=== PATIENT | male | born 1970 | race Caucasian/White ===

== ENCOUNTER 2017-03-10 20:20 | Emergency (ER) | payer OTHER, SELFPAY ==
[2017-03-10] MEDS ORDERED: Nitroglycerin 0.4 MG TAB (25 Tab Bottle) ONE (20:45)
--- NOTE | 2017-03-10 20:48 | RAD ---
TWO VIEWS OF THE CHEST 03/10/17 COMPARISON: 02/14/16 HISTORY: Chest pain. FINDINGS: Two views of the chest show normal sized cardiomediastinal silhouette. There is no evidence of consol idation, mass, or pleural effusion. The bones are unremarkable. IMPRESSION: No evidence of acute cardiopulmonary disease. POS: [facility]
[2017-03-10 21:08] LABS: #Basophils 0.2 thou/uL (0.0-0.2); #Eosinphils 0.5 thou/uL (0.0-0.7); #Lymphocytes 3.3 thou/uL (1.20-3.40); #Monocytes 0.7 thou/uL (0.11-0.59); #Neutrophils 4.7 thou/uL (1.40-6.50); %Eosinophils 5.2 % (0.0-10.0); %Lymphocytes 35.3 % (21.0-51.0); %Monocytes 7.9 % (0.0-10.0); %Neutrophils 49.6 % (42.0-75.0); Mean Corpuscular HGB CONC 33.5 g/dL (32.0-36.0); Mean Corpuscular Hemoglobin 29.5 pg (27.0-31.0); Mean Corpuscular Volume 88.1 fl (80.0-94.0); Mean Platelet Volume 8.4 fL (7.4-10.4); Platelet Count 248 thou/uL (130-400); RBC Distribution Width 11.1 % (11.5-14.5); Red Blood Cell (RBC) Count 5.74 mill/uL (4.70-6.10); White Blood Cell (WBC) Count 9.5 thou/uL (4.8-10.8)
[2017-03-10 21:16] LABS: INR-International Normal Ratio 0.9; Prothrombin Time 12.5 SEC (12.0-14.7)
[2017-03-10 21:23] LABS: ALT (SGPT) 46 U/L (8-55); AST (SGOT) 30 U/L (5-34); Alkaline Phosphatase 100 U/L (40-150); Anion Gap 14 mmol/L (10-20); BUN (Urea Nitrogen) 10 mg/dL (8.9-20.6); Bilirubin, Total 0.5 mg/dL (0.2-1.2); CK (CPK) 375 U/L (30-200); Calc. Creatinine Clearance 0 mL/min (70-130); Calcium 9.4 mg/dL (7.8-10.44); Carbon Dioxide 22 mmol/L (22-29); Chloride 107 mmol/L (98-107); Estimated GFR-MDRD 74; Globulin 3.2 g/dL (2.4-3.5); Glucose 126 mg/dL (70-105); Lipase 28 U/L (8-78); Potassium 3.7 mmol/L (3.5-5.1); Protein, Total 7.2 g/dL (6.0-8.3); Sodium 139 mmol/L (136-145)
[2017-03-10 21:30] LABS: CKMB 4.1 ng/mL (0-6.6)
== END 2017-03-10 22:55 | disposition home or self-care (01) ==
LOC: SCSER 20:20
DX: R07.9 Chest pain, unspecified (principal); E78.5 Hyperlipidemia, unspecified; F17.210 Nicotine dependence, cigarettes, uncomplicated
CPT/HCPCS: 71046; 80053; 82550; 82553; 83690; 84484; 85025; 85610; 93005; 94760

== ENCOUNTER 2018-11-13 11:40 | Emergency (ER) | payer OTHER, SELFPAY ==
--- NOTE | 2018-11-13 12:18 | RAD ---
PA AND LATERAL CHEST: Date: 11/13/18 COMPARISON: 03/10/17. HISTORY: Cough. FINDINGS: Heart size upper limits of normal. Interstitial markings are increased, but similar to the prior exam and appear to be chronic. No confluent infiltrate. IMPRESSION: Chronic appearing lung change. POS: [facility]
== END 2018-11-13 12:41 | disposition home or self-care (01) ==
LOC: SCSER 11:40
DX: R05 Cough (principal); E78.5 Hyperlipidemia, unspecified; E78.00 Pure hypercholesterolemia, unspecified; F17.210 Nicotine dependence, cigarettes, uncomplicated; F17.220 Nicotine dependence, chewing tobacco, uncomplicated
CPT/HCPCS: 71046; 87804

== ENCOUNTER 2019-07-19 16:56 | Emergency (ER) | payer SELFPAY ==
[2019-07-19 17:28] LABS: #Basophils 0.1 thou/uL (0.0-0.2); #Eosinphils 0.3 thou/uL (0.0-0.7); #Lymphocytes 3.2 thou/uL (1.20-3.40); #Monocytes 0.8 thou/uL (0.11-0.59); #Neutrophils 8.6 thou/uL (1.40-6.50); %Basophils 0.9 % (0.0-1.0); %Eosinophils 2.2 % (0.0-10.0); %Lymphocytes 24.8 % (21.0-51.0); %Monocytes 6.3 % (0.0-10.0); %Neutrophils 65.8 % (42.0-75.0); Hemoglobin 17.8 g/dL (14.0-18.0); Mean Corpuscular HGB CONC 33.6 g/dL (32.0-36.0); Mean Corpuscular Hemoglobin 31.4 pg (27.0-31.0); Mean Corpuscular Volume 93.5 fL (78.0-98.0); Platelet Count 270 thou/uL (130-400); Red Blood Cell (RBC) Count 5.66 mill/uL (4.70-6.10)
--- NOTE | 2019-07-19 17:47 | CT ---
CT THORAX WITH CONTRAST: DATE: 07/19/2019 HISTORY: 48-year-old male status post acute blunt trauma to the chest FINDINGS: No grossly displaced fractures of ribs, sternum, or thoracic spine. Thoracic vertebral body heights a re maintained. Lungs are clear. No pleural effusion or pneumothorax. No thoracic aortic dissection, aneurysm, or rupture. No pericardial effusion. No mediastinal hematoma or lymphadenopathy. Trachea an d major bronchi are patent and clear. No large hematoma in the chest wall. IMPRESSION: Negative
[2019-07-19 17:49] LABS: ALT (SGPT) 37 U/L (8-55); AST (SGOT) 34 U/L (5-34); Albumin 4.3 g/dL (3.5-5.0); Alkaline Phosphatase 109 U/L (40-110); Anion Gap 15 mmol/L (10-20); BUN (Urea Nitrogen) 10 mg/dL (8.9-20.6); Bilirubin, Total 0.5 mg/dL (0.2-1.2); Calc. Creatinine Clearance 0 mL/min (70-130); Calcium 9.6 mg/dL (7.8-10.44); Carbon Dioxide 20 mmol/L (22-29); Chloride 106 mmol/L (98-107); Estimated GFR-MDRD 71; Globulin 3.5 g/dL (2.4-3.5); Glucose 74 mg/dL (70-105); Lipase 21 U/L (8-78); Potassium 4.6 mmol/L (3.5-5.1); Protein, Total 7.8 g/dL (6.0-8.3); Sodium 136 mmol/L (136-145)
--- NOTE | 2019-07-19 18:02 | RAD ---
CHEST ONE VIEW: 07/19/19 COMPARISON: 08/31/08, 11/13/18. HISTORY: Pain. FINDINGS: Normal cardiac silhouette. The lungs and pleural spaces are clear. No pneumothorax or acute osseous a bnormalities. IMPRESSION: No acute cardiopulmonary process. POS: [facility]
[2019-07-19] MEDS ORDERED: Morphine 4 MG/ML VIAL ONE (19:01)
[2019-07-19] MEDS ORDERED: Ondansetron PF 4 MG/2 ML Vial ONE (19:02)
[2019-07-19] MEDS ORDERED: Ketorolac Tromethamine 30 MG/ML VIAL ONE (19:02)
== END 2019-07-19 19:26 | disposition home or self-care (01) ==
LOC: ERS 16:56
DX: R07.89 Other chest pain (principal); F17.210 Nicotine dependence, cigarettes, uncomplicated; E78.00 Pure hypercholesterolemia, unspecified; Z79.82 Long term (current) use of aspirin; W22.8XXA Striking against or struck by other objects, initial encounter
CPT/HCPCS: 71045; 71260; 80053; 83605; 83690; 85025; 93005; 96374; 96375; J1885; J2270; J2405

== ENCOUNTER 2020-05-22 15:38 | Emergency (ER) | payer OTHER, SELFPAY ==
[2020-05-22] MEDS ORDERED: Lidocaine 1% w/Epinephrine 1:100K 20 ML VIAL ONE (16:13)
== END 2020-05-22 16:59 | disposition home or self-care (01) ==
LOC: ERS 15:38
DX: S61.511A Laceration without foreign body of right wrist, initial encounter (principal); E78.5 Hyperlipidemia, unspecified; F17.210 Nicotine dependence, cigarettes, uncomplicated; F17.220 Nicotine dependence, chewing tobacco, uncomplicated; W26.8XXA Contact with other sharp object(s), not elsewhere classified, initial encounter
CPT/HCPCS: 12001

== ENCOUNTER 2024-10-26 09:23 | Emergency (ER) | payer OTHER, SELFPAY ==
[2024-10-26 10:04] LABS: #Basophils 0.13 10x3/uL (0.0-0.2); #Eosinophils 0.37 10x3/uL (0.0-0.7); #Monocytes 0.73 10x3/uL (0.11-0.59); #Neutrophils 3.78 10x3/uL (1.40-6.50); %Basophils 1.6 % (0.0-1.0); %Eosinophils 4.6 % (0.0-10.0); %Lymphocytes 37.6 % (21.0-51.0); %Monocytes 9.1 % (0.0-10.0); %Neutrophils 47.0 % (42.0-75.0); Hematocrit 49.4 % (42.0-52.0); Hemoglobin 16.9 g/dL (14.0-18.0); Mean Corpuscular Hemoglobin 30.3 pg (27.0-31.0); Mean Corpuscular Volume 88.5 fL (78.0-98.0); Platelet Count 245 10x3/uL (130-400); Red Blood Cell (RBC) Count 5.58 mill/uL (4.70-6.10); White Blood Cell (WBC) Count 8.04 10x3/uL (4.8-10.8)
[2024-10-26] MEDS ORDERED: Aspirin Chewable 81 MG TAB ONE (10:09)
[2024-10-26 10:31] LABS: ALT (SGPT) 33 U/L (Less than 45); AST (SGOT) 31 U/L (11-34); Albumin 4.0 g/dL (3.1-4.5); Alkaline Phosphatase 110 U/L (40-110); Anion Gap 14 mmol/L (10-20); BUN (Urea Nitrogen) 11 mg/dL (8.4-25.7); Bilirubin, Total 0.4 mg/dL (0.3-1.2); Calc. Creatinine Clearance 0 mL/min (70-130); Calcium 9.5 mg/dL (7.8-10.44); Carbon Dioxide 19 mmol/L (22-29); Chloride 106 mmol/L (98-107); Globulin 3.4 g/dL (2.4-3.5); Glucose 89 mg/dL (70-105); Lipase 21 U/L (8-78); Potassium 4.1 mmol/L (3.5-5.1); Sodium 135 mmol/L (136-145)
== END 2024-10-26 13:40 | disposition home or self-care (01) ==
LOC: ERS 09:23
DX: R07.89 Other chest pain (principal); F17.210 Nicotine dependence, cigarettes, uncomplicated
CPT/HCPCS: 36415; 71045; 80053; 83690; 84484; 85025; 93005; 94760